=== PATIENT | male | born 1935 | race Caucasian/White ===

== ENCOUNTER 2019-03-08 16:14 | Emergency (ER) | payer MEDICARE ==
[2019-03-08 16:43] LABS: #Basophils 0.1 thou/uL (0.0-0.2); #Eosinphils 0.2 thou/uL (0.0-0.7); #Lymphocytes 1.7 thou/uL (1.20-3.40); #Monocytes 0.8 thou/uL (0.11-0.59); #Neutrophils 4.2 thou/uL (1.40-6.50); %Basophils 0.9 % (0.0-1.0); %Eosinophils 3.1 % (0.0-10.0); %Lymphocytes 24.6 % (21.0-51.0); %Monocytes 10.9 % (0.0-10.0); %Neutrophils 60.4 % (42.0-75.0); Hemoglobin 15.2 g/dL (14.0-18.0); Mean Corpuscular HGB CONC 32.8 g/dL (32.0-36.0); Mean Corpuscular Hemoglobin 31.2 pg (27.0-31.0); Mean Corpuscular Volume 95.2 fL (78.0-98.0); Mean Platelet Volume 8.2 fL (7.4-10.4); Platelet Count 232 thou/uL (130-400); RBC Distribution Width 11.4 % (11.5-14.5); Red Blood Cell (RBC) Count 4.88 mill/uL (4.70-6.10)
[2019-03-08] MEDS ORDERED: Nitroglycerin 0.4 MG TAB 1 EACH ONE (16:53)
[2019-03-08] MEDS ORDERED: Aspirin Chewable 81 MG TAB ONE (16:53)
[2019-03-08 17:00] LABS: ALT (SGPT) 12 U/L (8-55); AST (SGOT) 20 U/L (5-34); Albumin 4.6 g/dL (3.4-4.8); Alkaline Phosphatase 58 U/L (40-150); Anion Gap 11 mmol/L (10-20); BUN (Urea Nitrogen) 17 mg/dL (8.4-25.7); Bilirubin, Total 0.3 mg/dL (0.2-1.2); Calc. Creatinine Clearance 0 mL/min (70-130); Calcium 9.2 mg/dL (7.8-10.44); Carbon Dioxide 27 mmol/L (23-31); Chloride 104 mmol/L (98-107); Estimated GFR-MDRD 78; Globulin 3.2 g/dL (2.4-3.5); Glucose 94 mg/dL (83-110); Potassium 4.1 mmol/L (3.5-5.1); Protein, Total 7.8 g/dL (5.8-8.1); Sodium 138 mmol/L (136-145)
--- NOTE | 2019-03-08 17:08 | RAD ---
Exam: Chest one view HISTORY:Chest pain Comparison: 02/13/2014 FINDINGS: Cardiac silhouette:Upper normal Pulmonary vessels: Normal Costophrenic angles: Clear LUNGS: No masses or consolidation. Hyperinflation with chronic changes. Pneumothorax: None Osseous abnormalities: None IMPRESSION: No acute cardiopulmonary process.
[2019-03-08] MEDS ORDERED: Enoxaparin Sodium 80 MG/0.8 ML SYRINGE ONE (17:50)
== END 2019-03-08 18:37 | disposition short-term general hospital (02) ==
LOC: MADERS 16:14
DX: I24.9 Acute ischemic heart disease, unspecified (principal); I45.2 Bifascicular block; Z86.73 Personal history of transient ischemic attack (TIA), and cerebral infarction without residual deficits; Z79.82 Long term (current) use of aspirin; Z79.899 Other long term (current) drug therapy
CPT/HCPCS: 71045; 80053; 82553; 83880; 84484; 85025; 93005; 94760; 96372; J1650

== ENCOUNTER 2019-03-20 18:30 | Inpatient (IN) | payer MEDICARE ==
[2019-03-20] MEDS ORDERED: Mineral Oil ENEMA PR PRN (19:44)
[2019-03-20] MEDS ORDERED: traZODone HCl 50 MG TAB PO PRN (19:46)
[2019-03-20] MEDS: Atorvastatin Calcium 10 MG TAB PO SCH (20:31)
[2019-03-20] MEDS: Tamsulosin HCl 0.4 MG CAP PO SCH (20:32)
[2019-03-20] MEDS: Mirtazapine 15 MG TAB PO SCH (20:32)
[2019-03-21 05:01] LABS: #Eosinphils 0.3 thou/uL (0.0-0.7); #Lymphocytes 1.3 thou/uL (1.20-3.40); #Monocytes 0.8 thou/uL (0.11-0.59); #Neutrophils 5.8 thou/uL (1.40-6.50); %Basophils 0.4 % (0.0-1.0); %Eosinophils 3.9 % (0.0-10.0); %Monocytes 9.9 % (0.0-10.0); %Neutrophils 69.8 % (42.0-75.0); Hemoglobin 10.1 g/dL (14.0-18.0); Mean Corpuscular HGB CONC 34.5 g/dL (32.0-36.0); Mean Corpuscular Hemoglobin 32.5 pg (27.0-31.0); Mean Corpuscular Volume 94.1 fL (78.0-98.0); Mean Platelet Volume 7.6 fL (7.4-10.4); Platelet Count 213 thou/uL (130-400); RBC Distribution Width 13.7 % (11.5-14.5); White Blood Cell (WBC) Count 8.4 thou/uL (4.8-10.8)
[2019-03-21 05:25] LABS: ALT (SGPT) 49 U/L (8-55); AST (SGOT) 25 U/L (5-34); Albumin 3.1 g/dL (3.4-4.8); Alkaline Phosphatase 87 U/L (40-150); Anion Gap 13 mmol/L (10-20); BUN (Urea Nitrogen) 40 mg/dL (8.4-25.7); Bilirubin, Total 0.5 mg/dL (0.2-1.2); Calc. Creatinine Clearance 53 mL/min (70-130); Calcium 7.7 mg/dL (7.8-10.44); Carbon Dioxide 24 mmol/L (23-31); Chloride 96 mmol/L (98-107); Estimated GFR-MDRD 63; Globulin 2.1 g/dL (2.4-3.5); Glucose 90 mg/dL (83-110); Potassium 4.3 mmol/L (3.5-5.1); Protein, Total 5.2 g/dL (5.8-8.1); Sodium 129 mmol/L (136-145)
[2019-03-21] MEDS: Carvedilol 3.125 MG TAB PO SCH ×2 (08:02→16:50)
[2019-03-21] MEDS: Nystatin 500,000 UNITS/5 ML UDCUP SSP SCH ×4 (08:02→21:17)
[2019-03-21] MEDS: Aspirin 325 mg Enteric Coated Tablet PO SCH (08:04)
[2019-03-21] MEDS: Polyethylene Glycol 3350 17 GM Packet PO SCH (08:04)
[2019-03-21] MEDS ORDERED: Escitalopram Oxalate 10 mg Tablet PO SCH (09:00)
--- NOTE | 2019-03-21 11:16 | HP ---
Suhail Lopez was admitted to [facility] on evening of 03/20/2019. CHIEF COMPLAINT: Weakness, no appetite. HISTORY OF PRESENT ILLNESS: The patient is an 83-year-old white male, who has a history of BPH and a distant TIA with no recent episodes. He lives at home with his and is independent with all of his ADLs and instrumental ADLs. The patient originally presented to my office on 03/08/2019 with episodes of intermittent epigastric and substernal pains that were becoming more frequent. He was taken to the emergency room and then transferred to [facility] and admitted on 03/08/2019. His initial cardiac enzymes were elevated and gradually peaked at 3.9 and CK-MB peaked at 16.9. He was admitted with a diagnosis of crescendo angina and myocardial infarction. He was seen in consultation by gambling supervisor and underwent a heart catheterization late on the night of 03/08/2019 that showed a high-grade LAD lesion at the first septal lambskin trimmer. He was electively scheduled for coronary artery bypass, but on the morning of his planned surgery, that is 03/10/2019, again he had sustained chest pain that improved with fluids and pharmacologic management. He was emergently taken back to surgery, but on the hotel or motel cleaning supervisor of 03/10, by cardiovascular surgeon, Dr. Henrry Gastelum and underwent coronary artery bypass x1 with the left internal mammary artery to the mid LAD. His postop course was complicated by some hypotension requiring vasopressors that eventually he was able to be weaned from. He also developed postop atrial fib and converted back to sinus rhythm the same day and remained in the sinus rhythm. He also had an episode of atrial flutter that resolved. He has been managed on aspirin and Coreg. He also had hyponatremia. His Lasix was stopped and he was placed on fluid restriction. His last chest tube was removed on 03/20/2019. His condition was one of gradual improvements, but he was left very weak, anorexic and depressed. He was started on Marinol and Lexapro and then it has opted to move him to [facility] on the evening of 03/20/2019 for physical therapy and continued management of the weakness, anorexia, and depression. Marinol was not available at the formulary at [place] and this was stopped. He had complained he had not been sleeping, and he was started on mirtazapine 15 mg at bedtime. The Lexapro will be stopped. The patient was seen early on the morning of 03/21/2019. He said he slept good last night, first night in a long time. He said he has just been weak. He has not had much of an appetite and just has been down in the dumps. He said he does feel a little better this morning. He said he is overall doing better, has been able to get up, sit up in a chair. He has been walking some in the hallways with assistance, but very weak. PAST MEDICAL HISTORY: Hospitalized at [facility] from 03/08 until 03/20/2019 for crescendo angina with infarction, heart cath showed high-grade stenosis of the proximal LAD at the first septal lambskin trimmer and 50% blockage in the RCA. He underwent emergent coronary artery surgery early in the morning of 03/10/2019, underwent a coronary artery bypass x1 with left internal mammary artery to the mid LAD. See present illness for further details. The patient has history of BPH and he has undergone TURP x2 and is managed with medication, doing well. Has severe arthritis of the left hip for which he has undergone a left hip replacement and doing well. He has had an appendectomy years ago. He had a TIA. He has not been left with any residual deficits and has had no recurrence. He has hyperlipidemia. PRESENT MEDICATIONS: 1. Aspirin 325 mg daily. 2. Atorvastatin 40 mg at bedtime. 3. Carvedilol 1.56 mg b.i.d. 4. Escitalopram 10 mg daily, which will be stopped. 5. Mineral oil by [employer] daily p.r.n. 6. Mirtazapine 15 mg at bedtime started on the evening of 03/20. 7. Pantoprazole 40 mg daily. 8. MiraLAX 17 g, 8 ounces of water, started on 03/21/2019. 9. Tamsulosin 0.4 mg at bedtime. ALLERGIES: PENICILLIN, SULFA DRUGS. REVIEW OF SYSTEMS: CONSTITUTIONAL: The patient said he has had no fever. The patient said he thinks he has lost some weight. The patient said he is just weak. He is able to get up and walk some with a walker and assistance. HEAD AND NECK: No complaints. PULMONARY: He has not been short of breath. CARDIOVASCULAR: He has had no chest pain. He is sore in the sternal area from the sternal splitting incision. GI: He has no appetite. He has had no nausea, no vomiting. Bowels are not moving well. : No complaint. MUSCULOSKELETAL: No complaint. NEUROPSYCHIATRIC: The patient complains of generalized weakness. No focal weakness. He is complaining of being depressed. HABITS: The patient does not smoke. He says he drinks occasionally. The patient is . He lives with his . Independent of all his ADLs and instrumental ADLs prior to this hospitalization. CODE STATUS: Full code. PHYSICAL EXAMINATION: GENERAL: Shows a pleasant 83-year-old white male, who is lying in bed. He is awake, alert, recognizes me and knows that he is in [facility]. He appears very weak, but is talkative and appears in no acute distress. He has a depressed affect. VITAL SIGNS: Show a temperature 97.5, pulse 87, respirations 18, O2 saturation 93%, blood pressure 108/66. His weight is 165. HEAD: Normocephalic. EYES: Pupils are equal, round, and reactive. He has had bilateral artificial lens implant for cataracts. EARS: TMs clear. NOSE: Normal. MOUTH AND THROAT: Mouth and throat are little dry, and there is a little whitish brown discoloration on the tongue and some on the mucous membranes, on the buccal mucosa. NECK: His neck carotids are equal and strong. No bruits. Thyroid not enlarged. LUNGS: Clear. HEART: Regular rate. No murmurs. CHEST: The patient has a sternal incision that is healing well. He has a chest tube site in the left lower anterior chest that was just removed and is covered with a Vaseline gauze and dressing. The skin near this area is irritated and a little raw from the taping that had been done. This last night was replaced just with the Vaseline gauze overlying 4x4 and ABD and paper tape. This morning, he has moderate amount of a serous drainage in the dressing. ABDOMEN: Scaphoid. There is no organomegaly nor areas of tenderness. EXTREMITIES: No edema. NEUROLOGIC: The patient is alert and oriented x3. He has a depressed affect. Has no focal weakness, but generalized weakness. He is able to get up and ambulate with assistance with a rolling walker. IMPRESSION: 1. Generalized weakness and deconditioning. a. Following recent myocardial infarction and coronary artery bypass on 03/10/2019. 2. Anorexia. 3. Depression. 4. Oral candidiasis. 5. Hospitalized at [facility] from 03/08 until 03/20/2019 for crescendo angina extending into myocardial infarction requiring coronary artery bypass on 03/10. Postop period complicated by some hypotension and short episode of atrial fibrillation and flutter that converted to a sinus rhythm. 6. Coronary artery disease. a. Hospitalized from 03/08 until 03/20/2019 for crescendo angina that extended into myocardial infarction. b. Heart cath on late night of 03/15/2019, showed high-grade stenosis of the proximal LAD at the site of the first lambskin trimmer takeoff and 50% stenosis of the right coronary artery. c. Status post emergent coronary artery bypass surgery with a graft x1 with a left internal mammary artery to the mid LAD on 03/10/[address] Gastelum. 7. Benign prostatic hypertrophy. a. Status post TURP x2. b. On tamsulosin. c. Asymptomatic. 8. Distant history of transient ischemic attack. a. No residual effect and no recurrence. PLAN: The patient has been admitted to [facility]. His Lexapro will be stopped and his Marinol will be stopped. I started him last evening on mirtazapine for the insomnia, the anorexia and depression, and he slept very well. I started him on Mycostatin oral suspension to use 4 times a day for 10 days for the oral candidiasis. The chest tube insertion site on the left lower anterior chest will be dressed daily. I will keep a Vaseline gauze over the site and then cover with 4x4s and ABD and use paper tape. The patient is placed on SCDs for DVT prophylaxis. The PT and OT will work with him. Code status, full code. Job ID: [id number]
[2019-03-21] MEDS: Atorvastatin Calcium 10 MG TAB PO SCH (21:17)
[2019-03-21] MEDS: Mirtazapine 15 MG TAB PO SCH (21:17)
[2019-03-21] MEDS: Tamsulosin HCl 0.4 MG CAP PO SCH (21:17)
[2019-03-22 05:14] LABS: #Basophils 0.1 thou/uL (0.0-0.2); #Eosinphils 0.3 thou/uL (0.0-0.7); #Lymphocytes 1.4 thou/uL (1.20-3.40); #Monocytes 0.9 thou/uL (0.11-0.59); #Neutrophils 6.3 thou/uL (1.40-6.50); %Basophils 0.9 % (0.0-1.0); %Eosinophils 3.7 % (0.0-10.0); %Lymphocytes 15.5 % (21.0-51.0); %Monocytes 9.8 % (0.0-10.0); %Neutrophils 70.2 % (42.0-75.0); Hemoglobin 10.2 g/dL (14.0-18.0); Mean Corpuscular HGB CONC 34.1 g/dL (32.0-36.0); Mean Corpuscular Hemoglobin 32.2 pg (27.0-31.0); Mean Corpuscular Volume 94.4 fL (78.0-98.0); Mean Platelet Volume 8.1 fL (7.4-10.4); Platelet Count 248 thou/uL (130-400); RBC Distribution Width 14.1 % (11.5-14.5); Red Blood Cell (RBC) Count 3.17 mill/uL (4.70-6.10)
[2019-03-22 05:32] LABS: Anion Gap 14 mmol/L (10-20); BUN (Urea Nitrogen) 33 mg/dL (8.4-25.7); Calc. Creatinine Clearance 59 mL/min (70-130); Calcium 7.7 mg/dL (7.8-10.44); Carbon Dioxide 23 mmol/L (23-31); Chloride 97 mmol/L (98-107); Estimated GFR-MDRD 71; Glucose 87 mg/dL (83-110); Potassium 4.1 mmol/L (3.5-5.1); Sodium 130 mmol/L (136-145)
[2019-03-22] MEDS: Carvedilol 3.125 MG TAB PO SCH ×3 (08:46→18:13)
[2019-03-22] MEDS: Nystatin 500,000 UNITS/5 ML UDCUP SSP SCH ×4 (08:46→21:33)
[2019-03-22] MEDS: Aspirin 325 mg Enteric Coated Tablet PO SCH (08:46)
[2019-03-22] MEDS: Polyethylene Glycol 3350 17 GM Packet PO SCH (08:47)
--- NOTE | 2019-03-22 10:19 | PRG ---
DATE OF SERVICE: 03/22/2019 SUBJECTIVE: The patient has been up and walked. Physical Therapy is now on the NuStep. He said he did sleep better. His mouth feels better, but he still just does not have much of an appetite. OBJECTIVE: GENERAL: The patient is sitting on the NuStep. He is more talkative. He looks better this morning, and he appears in no distress. VITAL SIGNS: His temperature is 97.9, pulse 88, respirations 16, O2 saturation 97% on room air, and blood pressure 117/62. LUNGS: Clear. HEART: Regular rate. Sternal incision is healing. There is no drainage or redness. He still has moderate amount of serous drainage from where the chest tube was removed from the left lower chest. MOUTH: Mucous membranes are moist. The tongue looks better. Still has some yellow whitish debris, but overall looks much improved. LABORATORY DATA: His lab shows an H and H of 10.0 and 29.9, white blood cell count 9000 with 70% segs and 15% lymphocytes and platelet count of 248,000. Sodium is up to 130, potassium 4.1, BUN down to 31, creatinine 1, GFR is 71, and glucose 87. ASSESSMENT: 1. Generalized weakness and deconditioning. a. Following recent myocardial infarction and coronary artery bypass on . b. Improved as of 03/22/2019. 2. Anorexia. a. Persists as of 03/22/2019. 3. Depression. a. A little improved as of 03/22/2019. 4. Oral candidiasis. a. Improved as of 03/22/2019. 5. Hospitalized at [facility] from 03/08 until 03/20/2019 for crescendo angina extending into myocardial infarction requiring coronary artery bypass on 03/10. Postop period complicated by some hypotension and short episode of atrial fibrillation and flutter that converted to a sinus rhythm. 6. Coronary artery disease. a. Hospitalized from 03/08 until 03/20/2019 for crescendo angina that extended into myocardial infarction. b. Heart cath on late night of 03/15/2019, showed high-grade stenosis of the proximal LAD at the site of the first concrete grinder operator takeoff and 50% stenosis of the right coronary artery. c. Status post emergent coronary artery bypass surgery with a graft x1 with a left internal mammary artery to the mid LAD on 03/10/[address] Gastelum. d. Improving. Still has some moderate serous drainage from where the chest tube was removed from the left chest as of 03/22/2019. 7. Benign prostatic hypertrophy. a. Status post TURP x2. b. On tamsulosin. c. Asymptomatic. 8. Distant history of transient ischemic attack. a. No residual effect and no recurrence. PLAN: The patient looks a little better today. I think as he continues to improve physically and his oral candidiasis improved, the depression improved, that his appetite will also begin improving, if not we will increase the mirtazapine, continue positive reinforcement. Job ID: [id number] [facility]
[2019-03-22] MEDS: Atorvastatin Calcium 10 MG TAB PO SCH (21:33)
[2019-03-22] MEDS: Tamsulosin HCl 0.4 MG CAP PO SCH (21:33)
[2019-03-22] MEDS: Mirtazapine 15 MG TAB PO SCH (21:33)
[2019-03-23] MEDS: Nystatin 500,000 UNITS/5 ML UDCUP SSP SCH ×4 (07:57→20:03)
[2019-03-23] MEDS: Carvedilol 3.125 MG TAB PO SCH ×2 (07:58→16:52)
[2019-03-23] MEDS: Aspirin 325 mg Enteric Coated Tablet PO SCH (07:58)
[2019-03-23] MEDS: Polyethylene Glycol 3350 17 GM Packet PO SCH (07:58)
--- NOTE | 2019-03-23 12:22 | PRG ---
DATE OF SERVICE: 03/23/2019 SUBJECTIVE: The patient said he slept good last night. The patient is eating a little better. His has been visiting with him and the dietitian is working with him to find foods that he likes to eat at home. OBJECTIVE: GENERAL: The patient is sitting up on the side of the bed. He is alert. He looks better. He appears in no acute distress. VITAL SIGNS: His temperature is 97.1, pulse 88, respirations 16, O2 saturation 95% on room air, blood pressure 105/62. LUNGS: Clear. HEART: Regular rate. The sternal incision is healing. Dressing over the left lower anterolateral chest is dry. EXTREMITIES: No edema. HEENT: Oral mucosa is moist. Tongue looks better. The white-yellowish discoloration is resolving. ASSESSMENT: 1. Generalized weakness and deconditioning. a. Following recent myocardial infarction and coronary artery bypass on . b. Improved as of 03/23/2019. 2. Anorexia. a. Little improved as of 03/23/2019. 3. Depression. a. A little improved as of 03/23/2019. 4. Oral candidiasis. a. Improved as of 03/23/2019. 5. Hospitalized at [facility] from 03/08 until 03/20/2019 for crescendo angina extending into myocardial infarction requiring coronary artery bypass on 03/10. Postop period complicated by some hypotension and short episode of atrial fibrillation and flutter that converted to a sinus rhythm. 6. Coronary artery disease. a. Hospitalized from 03/08 until 03/20/2019 for crescendo angina that extended into myocardial infarction. b. Heart cath on late night of 03/15/2019, showed high-grade stenosis of the proximal LAD at the site of the first cocoa roaster takeoff and 50% stenosis of the right coronary artery. c. Status post emergent coronary artery bypass surgery with a graft x1 with a left internal mammary artery to the mid LAD on 03/10/[address] Gastelum. d. Improving. Still has some moderate serous drainage from where the chest tube was removed from the left chest as of 03/22/2019. 7. Benign prostatic hypertrophy. a. Status post TURP x2. b. On tamsulosin. c. Asymptomatic. 8. Distant history of transient ischemic attack. a. No residual effect and no recurrence. PLAN: The patient is doing a little better. We will continue PT/OT. Dietitian has met with him and given him medicines that he eats at home. He is doing a little better with his eating. His is going to share her meals with him, which she is happy about. Job ID: [id number] [facility]
[2019-03-23] MEDS: Mag-Al Plus 1200 MG/1200 MG/120 MG/30 ML UDCUP PO PRN (20:00)
[2019-03-23] MEDS: Tamsulosin HCl 0.4 MG CAP PO SCH (20:00)
[2019-03-23] MEDS: Mirtazapine 15 MG TAB PO SCH (20:01)
[2019-03-23] MEDS: Atorvastatin Calcium 10 MG TAB PO SCH (20:01)
[2019-03-23] MEDS: Acetaminophen 325 MG TAB PO PRN (20:01)
[2019-03-24] MEDS: Polyethylene Glycol 3350 17 GM Packet PO SCH (08:23)
[2019-03-24] MEDS: Aspirin 325 mg Enteric Coated Tablet PO SCH (08:24)
[2019-03-24] MEDS: Carvedilol 3.125 MG TAB PO SCH ×2 (08:24→17:31)
[2019-03-24] MEDS: Nystatin 500,000 UNITS/5 ML UDCUP SSP SCH ×4 (08:24→20:15)
--- NOTE | 2019-03-24 10:07 | PRG ---
DATE OF SERVICE: 03/24/2019 SUBJECTIVE: The patient is feeling better today. He is eating a little better. He gets a little indigestion with eating, but took some Maalox for the indigestion and this seemed to work very well. He is doing good with physical therapy. He has had no shortness of breath or chest pain. His mouth is feeling better. OBJECTIVE: GENERAL: The patient is in the Physical therapy Department on [address], working his arms and legs. He is alert, talkative, appears comfortable, in no distress. VITAL SIGNS: Temp 97.5, pulse 100, respirations 18, O2 saturation 95% on room air, blood pressure 93/58. LUNGS: Clear. HEART: Regular rate. External incision healing well. The dressing over the left chest tube site is dry. EXTREMITIES: No edema. ASSESSMENT: 1. Generalized weakness and deconditioning. a. Following recent myocardial infarction and coronary artery bypass on . b. Improved as of 03/24/2019. 2. Anorexia. a. Improved as of 03/24/2019. 3. Depression. a. Improved as of 03/24/2019. 4. Oral candidiasis. a. Resolving as of 03/24/2019. 5. Hospitalized at [facility] from 03/08 until 03/20/2019 for crescendo angina extending into myocardial infarction requiring coronary artery bypass on 03/10. Postop period complicated by some hypotension and short episode of atrial fibrillation and flutter that converted to a sinus rhythm. 6. Coronary artery disease. a. Hospitalized from 03/08 until 03/20/2019 for crescendo angina that extended into myocardial infarction. b. Heart cath on late night of 03/15/2019, showed high-grade stenosis of the proximal LAD at the site of the first service or work dispatcher takeoff and 50% stenosis of the right coronary artery. c. Status post emergent coronary artery bypass surgery with a graft x1 with a left internal mammary artery to the mid LAD on 03/10/[address] Gastelum. d. Improving. Still has some moderate serous drainage from where the chest tube was removed from the left chest as of 03/22/2019. 7. Benign prostatic hypertrophy. a. Status post TURP x2. b. On tamsulosin. c. Asymptomatic. 8. Distant history of transient ischemic attack. a. No residual effect and no recurrence. PLAN: Continue present care. Continue PT. Job ID: [id number] [facility]
[2019-03-24] MEDS: Mag-Al Plus 1200 MG/1200 MG/120 MG/30 ML UDCUP PO PRN ×2 (11:51→17:34)
[2019-03-24] MEDS: Acetaminophen 325 MG TAB PO PRN ×2 (19:22→23:17)
[2019-03-24] MEDS: Tamsulosin HCl 0.4 MG CAP PO SCH (20:15)
[2019-03-24] MEDS: Mirtazapine 15 MG TAB PO SCH (20:15)
[2019-03-24] MEDS: Atorvastatin Calcium 10 MG TAB PO SCH (20:16)
[2019-03-24] MEDS: Melatonin 3 MG TAB PO PRN (20:39)
[2019-03-25] MEDS: Aspirin 325 mg Enteric Coated Tablet PO SCH (09:01)
[2019-03-25] MEDS: Carvedilol 3.125 MG TAB PO SCH ×2 (09:01→17:25)
[2019-03-25] MEDS: Polyethylene Glycol 3350 17 GM Packet PO SCH (09:01)
[2019-03-25] MEDS: Nystatin 500,000 UNITS/5 ML UDCUP SSP SCH ×4 (09:02→20:22)
[2019-03-25] MEDS: Atorvastatin Calcium 10 MG TAB PO SCH (20:21)
[2019-03-25] MEDS: Mirtazapine 15 MG TAB PO SCH (20:21)
[2019-03-25] MEDS: Acetaminophen 325 MG TAB PO PRN (20:22)
[2019-03-25] MEDS: Tamsulosin HCl 0.4 MG CAP PO SCH (20:22)
[2019-03-25] MEDS: Melatonin 3 MG TAB PO PRN (20:22)
[2019-03-26] MEDS: Acetaminophen 325 MG TAB PO PRN ×2 (03:08→21:05)
[2019-03-26 06:32] VITALS: BMI 21.9
[2019-03-26] MEDS: Polyethylene Glycol 3350 17 GM Packet PO SCH (08:36)
[2019-03-26] MEDS: Nystatin 500,000 UNITS/5 ML UDCUP SSP SCH ×4 (08:36→21:04)
[2019-03-26] MEDS: Carvedilol 3.125 MG TAB PO SCH ×2 (08:37→17:21)
[2019-03-26] MEDS: Aspirin 325 mg Enteric Coated Tablet PO SCH (08:37)
[2019-03-26] MEDS: Mag-Al Plus 1200 MG/1200 MG/120 MG/30 ML UDCUP PO PRN (15:24)
[2019-03-26] MEDS ORDERED: Mag-Al Plus 1200 MG/1200 MG/120 MG/30 ML UDCUP PO PRN (15:29)
[2019-03-26] MEDS: Atorvastatin Calcium 10 MG TAB PO SCH (21:02)
[2019-03-26] MEDS: Mirtazapine 15 MG TAB PO SCH (21:03)
[2019-03-26] MEDS: Tamsulosin HCl 0.4 MG CAP PO SCH (21:03)
[2019-03-26] MEDS: Melatonin 3 MG TAB PO PRN (21:03)
[2019-03-27] MEDS: Carvedilol 3.125 MG TAB PO SCH ×2 (08:31→17:29)
[2019-03-27] MEDS: Polyethylene Glycol 3350 17 GM Packet PO SCH (08:31)
[2019-03-27] MEDS: Aspirin 325 mg Enteric Coated Tablet PO SCH (08:32)
--- NOTE | 2019-03-27 10:37 | PRG ---
DATE OF SERVICE: 03/27/2019 SUBJECTIVE: The patient says he is doing a lot better. He is walking further. He is transferring independent. His appetite is much better. His mouth, he thinks is well and he has refused anymore the Mycostatin. He thinks he is ready to go home. OBJECTIVE: GENERAL: The patient looks much better. His spirits are good. He appears in no distress. VITAL SIGNS: His temperature is 98.2, pulse 92, respirations 18, O2 saturation 96%, and blood pressure 108/70. HEENT: Mouth, moist. Tongue is pink. There is no whitish debris or yellowish debris. The buccal mucosa is pink with no lesions. LUNGS: Clear. HEART: Regular rate. EXTREMITIES: No edema. The sternal incision is healing. ASSESSMENT: 1. Generalized weakness and deconditioning. a. Following recent myocardial infarction and coronary artery bypass on . b. Continued to improve. Walking further and transferring independent as of 03/27/2019. 2. Anorexia. a. Resolving as of 03/27/2019. 3. Depression. a. Improved as of 03/27/2019. 4. Oral candidiasis. a. Resolved as of 03/27/2019. 5. Hospitalized at [facility] from 03/08 until 03/20/2019 for crescendo angina extending into myocardial infarction requiring coronary artery bypass on 03/10. Postop period complicated by some hypotension and short episode of atrial fibrillation and flutter that converted to a sinus rhythm. 6. Coronary artery disease. a. Hospitalized from 03/08 until 03/20/2019 for crescendo angina that extended into myocardial infarction. b. Heart cath on late night of 03/15/2019, showed high-grade stenosis of the proximal LAD at the site of the first vocal music teacher takeoff and 50% stenosis of the right coronary artery. c. Status post emergent coronary artery bypass surgery with a graft x1 with a left internal mammary artery to the mid LAD on 03/10/[address] Gastelum. d. Improving. Still has some moderate serous drainage from where the chest tube was removed from the left chest as of 03/22/2019. 7. Benign prostatic hypertrophy. a. Status post TURP x2. b. On tamsulosin. c. Asymptomatic. 8. Distant history of transient ischemic attack. a. No residual effect and no recurrence. PLAN: The patient is making excellent progress. We will continue present management. We will stop the Mycostatin oral suspension. Continue PT. We will plan for discharge home on 03/29/2019. This will give his some preparatory time and he will certainly benefit by the added therapy. We will recheck CBC and comprehensive metabolic panel in the morning. Job ID: [id number] [facility]TDD
[2019-03-27 14:55] LABS: ALT (SGPT) 37 U/L (8-55); AST (SGOT) 35 U/L (5-34); Albumin 3.1 g/dL (3.4-4.8); Alkaline Phosphatase 90 U/L (40-150); Anion Gap 13 mmol/L (10-20); BUN (Urea Nitrogen) 19 mg/dL (8.4-25.7); Bilirubin, Total 0.4 mg/dL (0.2-1.2); Calc. Creatinine Clearance 0 mL/min (70-130); Calcium 7.5 mg/dL (7.8-10.44); Carbon Dioxide 22 mmol/L (23-31); Chloride 105 mmol/L (98-107); Estimated GFR-MDRD 82; Glucose 108 mg/dL (83-110); Potassium 3.7 mmol/L (3.5-5.1); Protein, Total 5.1 g/dL (5.8-8.1); Sodium 136 mmol/L (136-145)
[2019-03-27] MEDS: Atorvastatin Calcium 10 MG TAB PO SCH (20:10)
[2019-03-27] MEDS: Tamsulosin HCl 0.4 MG CAP PO SCH (20:11)
[2019-03-27] MEDS: Mirtazapine 15 MG TAB PO SCH (20:11)
[2019-03-28 05:22] LABS: Anion Gap 15 mmol/L (10-20); BUN (Urea Nitrogen) 17 mg/dL (8.4-25.7); Calc. Creatinine Clearance 68 mL/min (70-130); Calcium 7.7 mg/dL (7.8-10.44); Carbon Dioxide 22 mmol/L (23-31); Chloride 104 mmol/L (98-107); Estimated GFR-MDRD 86; Glucose 93 mg/dL (83-110); Potassium 3.6 mmol/L (3.5-5.1); Sodium 137 mmol/L (136-145)
[2019-03-28] MEDS: Polyethylene Glycol 3350 17 GM Packet PO SCH (07:09)
[2019-03-28] MEDS: Carvedilol 3.125 MG TAB PO SCH ×2 (08:04→17:08)
[2019-03-28] MEDS: Aspirin 325 mg Enteric Coated Tablet PO SCH (08:04)
[2019-03-28] MEDS: Clotrimazole 1% Cream 15 GM TUBE TOP SCH ×2 (08:53→20:10)
--- NOTE | 2019-03-28 09:48 | PRG ---
DATE OF SERVICE: 03/28/2019 SUBJECTIVE: The patient said he is feeling well. He is doing well with his PT. This morning walking up to 400 feet. Transferring independent. Appetite, he said is better, but not back to normal. He still wants to try to go home tomorrow. His is making preparations. OBJECTIVE: GENERAL: The patient is in the hallways, walking with his walker. He is alert, appears comfortable, in no distress. VITAL SIGNS: Shows a temp 98, pulse 94, respirations 18, O2 saturation 97% on room air, and blood pressure 107/63. LUNGS: Clear. HEART: Regular rate. Sternal incision healing. There was just Band-Aids now over the chest tube sites over the left lower anterior lateral chest. EXTREMITIES: No edema. ASSESSMENT: 1. Generalized weakness and deconditioning. a. Following recent myocardial infarction and coronary artery bypass on . b. Continues to improve. Walking up to 400 feet with a walker and transferring independent as of 03/28/2019. 2. Anorexia. a. Resolving as of 03/27/2019. 3. Depression. a. Improved as of 03/28/2019. 4. Oral candidiasis. a. Resolved as of 03/27/2019. 5. Hospitalized at [facility] from 03/08 until 03/20/2019 for crescendo angina extending into myocardial infarction requiring coronary artery bypass on 03/10. Postop period complicated by some hypotension and short episode of atrial fibrillation and flutter that converted to a sinus rhythm. 6. Coronary artery disease. a. Hospitalized from 03/08 until 03/20/2019 for crescendo angina that extended into myocardial infarction. b. Heart cath on late night of 03/15/2019, showed high-grade stenosis of the proximal LAD at the site of the first cash applications analyst takeoff and 50% stenosis of the right coronary artery. c. Status post emergent coronary artery bypass surgery with a graft x1 with a left internal mammary artery to the mid LAD on 03/10/[address] Gastelum. d. Improving. Chest tube sites are healing and just to have a Band-Aid over the insertion sites as of 03/28/2019. 7. Benign prostatic hypertrophy. a. Status post TURP x2. b. On tamsulosin. c. Asymptomatic. 8. Distant history of transient ischemic attack. a. No residual effect and no recurrence. PLAN: Continue PT/OT. Nurses report the patient has a small red area over the glans penis. We will give him clotrimazole cream for this, even at this yeast. Plan on discharge tomorrow. Job ID: [id number] [facility]TDD
[2019-03-28] MEDS: Atorvastatin Calcium 10 MG TAB PO SCH (20:11)
[2019-03-28] MEDS: Tamsulosin HCl 0.4 MG CAP PO SCH (20:11)
[2019-03-28] MEDS: Mirtazapine 15 MG TAB PO SCH (20:14)
[2019-03-29] MEDS: Melatonin 3 MG TAB PO PRN (02:31)
[2019-03-29 06:40] VITALS: BP 101/65; TEMP 98.1
[2019-03-29] MEDS: Aspirin 325 mg Enteric Coated Tablet PO SCH (08:04)
[2019-03-29] MEDS: Carvedilol 3.125 MG TAB PO SCH (08:04)
[2019-03-29] MEDS: Clotrimazole 1% Cream 15 GM TUBE TOP SCH (08:04)
[2019-03-29] MEDS: Polyethylene Glycol 3350 17 GM Packet PO SCH (08:05)
--- NOTE | 2019-03-29 08:59 | DIS ---
DATE OF ADMISSION: 03/20/2019 DATE OF DISCHARGE: 03/29/2019 DISCHARGE DIAGNOSES: 1. Generalized weakness and deconditioning. a. Following recent myocardial infarction and coronary artery bypass on . b. Continues to improve. Walking up to 400 feet with a walker and transferring independent as of 03/29/2019. 2. Anorexia. a. Resolved as of 03/29/2019. 3. Depression. a. Improved as of 03/29/2019. 4. Oral candidiasis. a. Resolved as of 03/27/2019. 5. Hospitalized at [facility] from 03/08 until 03/20/2019 for crescendo angina extending into myocardial infarction requiring coronary artery bypass on 03/10. Postop period complicated by some hypotension and short episode of atrial fibrillation and flutter that converted to a sinus rhythm. 6. Coronary artery disease. a. Hospitalized from 03/08 until 03/20/2019 for crescendo angina that extended into myocardial infarction. b. Heart cath on late night of 03/15/2019, showed high-grade stenosis of the proximal LAD at the site of the first tool crib supervisor takeoff and 50% stenosis of the right coronary artery. c. Status post emergent coronary artery bypass surgery with a graft x1 with a left internal mammary artery to the mid LAD on 03/10/[address] Gastelum. d. Improving. Chest tube sites are healing and just to have a Band-Aid over the insertion sites as of 03/28/2019. 7. Benign prostatic hypertrophy. a. Status post TURP x2. b. On tamsulosin. c. Asymptomatic. 8. Distant history of transient ischemic attack. a. No residual effect and no recurrence. REASON FOR ADMISSION: The patient is an 83-year-old white male who has a history of BPH, who lives at home with his and is independent of all his instrumental ADLs and ADLs. The patient was hospitalized at [facility] on 03/08/2019 for crescendo angina and had abnormal enzymes with evidence of myocardial infarction. He underwent a heart catheterization and it showed a high-grade stenosis of the proximal LAD at the site of the first tool crib supervisor takeoff and 50% stenosis of the right coronary artery. He underwent coronary artery bypass emergently because he developed repeat chest pain and he had a graft x 1 with a left internal mammary artery to the mid LAD on 03/10/[address] Gastelum. Postop course was complicated by a short episode of atrial fibrillation and also by some hypotension. Gradually he improved and was able to be removed from any vasopressors. His chest tube was removed on 03/19/2019. He was doing very well with the exception he was extremely weak, anorexic, and depressed. He was sent to [facility] on 03/20/2019 for these reasons. On initial examination, he was very weak, required assistance with getting up and down and walking. He was found to have an oral candidiasis, which was contributing to his anorexia. His lungs were clear. The chest tube site had a moderate amount of serous drainage over the left lower anterolateral chest. This was kept clean and covered with Vaseline gauze and gauze dressing, and an ABD. This gradually improved through his hospitalization. He had a very depressed affect. The patient was placed on Diflucan and on Mycostatin oral suspension for the oral candidiasis, and then he was placed on mirtazapine and the Lexapro was stopped. Mirtazapine was thought would work better and that it may help stimulate his appetite, help with his sleep that he was having a lot of trouble with and help as an antidepressant. The anorexia was felt to be secondary to the events that he has been through plus the depression and the oral candidiasis. The depression gradually improved. The sleep did very well on the mirtazapine. Melatonin was added to this and he seemed to be doing fine with sleep. The oral candidiasis gradually resolved. His appetite came back. His blood pressure remained low. He was on a very low dose of Coreg 3.125 half a tablet twice today, but this was held, if blood pressure less than 100. Most the time, he would only receive this just one time a day. He had no symptoms from this lower blood pressure. The patient made excellent progress with his physical therapy. By the time of his discharge, he was walking up to 400 feet with his rolling walker and he was transferring independently. His sternal incision was healing well. The chest tube insertion sites were healing well with just minimal dressing, and were able to be dressed with just a Band-Aid. By 03/29, the patient was doing well. His lungs were clear. His affect was very happy and his strength was markedly improved. His oral candidiasis had resolved. The patient was discharged on 03/29. Home Health will picker box operator on his care and continue in-home PT and OT. DISPOSITION: DIET: Regular diet. No added salt. Encourage liquids. ACTIVITIES: Up as tolerated. Encourage him to gradually increase activities in the house. Home Health will see him and arrange for in-home PT and OT. MEDICATIONS: 1. Acetaminophen 325 mg two every 4 hours as needed. 2. Maalox 30 mL every 4 hours as needed. 3. Aspirin 325 mg daily. 4. Atorvastatin 40 mg daily. 5. Carvedilol 3.125 mg half a tablet daily, hold if blood pressure less than 100 or pulse less than 55. 6. Melatonin 3 mg at bedtime. 7. Mirtazapine 15 mg at bedtime. 8. Pantoprazole 40 mg daily. 9. MiraLAX 17 g 8 ounces of water daily. 10. Tamsulosin 0.4 mg at bedtime. FOLLOWUP: [facility] will see the patient and arrange for in-home PT. We will see patient in my office in 2 weeks with CBC and basic metabolic panel. It was noted by his briquette machine operator that he had a right carotid bruit and she had recommended he have a duplex carotid scan as an outpatient setting. When he is seen in followup, arrangements for this will be made. The patient should follow up with his Cardiovascular surgeon, Dr. Gastelum. CODE STATUS: DNR. Job ID: [id number] MTDD
== END 2019-03-29 11:40 | disposition home health service (06) | DRG 949 ==
LOC: MADMS 18:30
PROVIDERS: ADMIT Family Medicine; ATTEND Family Medicine
DX: Z48.812 Encounter for surgical aftercare following surgery on the circulatory system (principal); B37.0 Candidal stomatitis; R53.1 Weakness; R53.81 Other malaise; F32.9 Major depressive disorder, single episode, unspecified; Z66 Do not resuscitate; R63.0 Anorexia; I25.10 Atherosclerotic heart disease of native coronary artery without angina pectoris; N40.0 Benign prostatic hyperplasia without lower urinary tract symptoms; G47.00 Insomnia, unspecified; Z96.642 Presence of left artificial hip joint; E78.5 Hyperlipidemia, unspecified; Z86.73 Personal history of transient ischemic attack (TIA), and cerebral infarction without residual deficits; Z90.49 Acquired absence of other specified parts of digestive tract; Z79.82 Long term (current) use of aspirin; Z88.0 Allergy status to penicillin; Z88.2 Allergy status to sulfonamides
CPT/HCPCS: 36415; 80048; 80053; 85025

== ENCOUNTER 2019-04-01 07:35 | Emergency (ER) | payer MEDICARE ==
[2019-04-01 08:20] LABS: #Basophils 0.1 thou/uL (0.0-0.2); #Eosinphils 0.3 thou/uL (0.0-0.7); #Lymphocytes 1.2 thou/uL (1.20-3.40); #Monocytes 0.5 thou/uL (0.11-0.59); #Neutrophils 3.2 thou/uL (1.40-6.50); %Basophils 1.8 % (0.0-1.0); %Eosinophils 5.8 % (0.0-10.0); %Lymphocytes 22.1 % (21.0-51.0); %Monocytes 9.6 % (0.0-10.0); %Neutrophils 60.7 % (42.0-75.0); Hemoglobin 10.3 g/dL (14.0-18.0); Mean Corpuscular Hemoglobin 31.8 pg (27.0-31.0); Mean Corpuscular Volume 93.5 fL (78.0-98.0); Mean Platelet Volume 8.3 fL (7.4-10.4); Platelet Count 188 thou/uL (130-400); RBC Distribution Width 13.9 % (11.5-14.5); Red Blood Cell (RBC) Count 3.25 mill/uL (4.70-6.10); White Blood Cell (WBC) Count 5.2 thou/uL (4.8-10.8)
[2019-04-01 08:35] LABS: ALT (SGPT) 31 U/L (8-55); AST (SGOT) 21 U/L (5-34); Albumin 3.5 g/dL (3.4-4.8); Alkaline Phosphatase 113 U/L (40-150); Anion Gap 14 mmol/L (10-20); BUN (Urea Nitrogen) 16 mg/dL (8.4-25.7); Bilirubin, Total 0.5 mg/dL (0.2-1.2); CK (CPK) 68 U/L (30-200); Calc. Creatinine Clearance 0 mL/min (70-130); Carbon Dioxide 24 mmol/L (23-31); Chloride 106 mmol/L (98-107); Estimated GFR-MDRD 68; Globulin 2.3 g/dL (2.4-3.5); Glucose 128 mg/dL (83-110); Potassium 3.7 mmol/L (3.5-5.1); Protein, Total 5.8 g/dL (5.8-8.1); Sodium 140 mmol/L (136-145)
[2019-04-01] MEDS ORDERED: Furosemide 40 MG/4 ML VIAL ONE (08:37)
--- NOTE | 2019-04-01 08:49 | RAD ---
EXAM: XR Chest 1 View Portable PROVIDED CLINICAL HISTORY: Dyspnea COMPARISON: 03/17/2019 FINDINGS: Cardiac silhouette appears enlarged. Prominence of the pulmonary vasculature and pulmonary interstiti um. Blunting of the right costophrenic angle. No evidence for pneumothorax. Advanced bilateral glenohumeral arthropathy. IMPRESSION: Cardiomegaly and findings suggesting congestive failure with small right pleural effusion. Follow-up is recommended.
[2019-04-01 08:54] LABS: CKMB 3.1 ng/mL (0-6.6)
== END 2019-04-01 10:20 | disposition short-term general hospital (02) ==
LOC: MADERS 07:35
DX: I11.0 Hypertensive heart disease with heart failure (principal); I50.9 Heart failure, unspecified; Z86.73 Personal history of transient ischemic attack (TIA), and cerebral infarction without residual deficits; F41.9 Anxiety disorder, unspecified; Z79.899 Other long term (current) drug therapy; Z79.82 Long term (current) use of aspirin
CPT/HCPCS: 71045; 80053; 82550; 82553; 83605; 83880; 84484; 85025; 93005; 96374; J1940

== ENCOUNTER 2019-04-12 13:31 | Outpatient (CLI) | payer MEDICARE ==
[2019-04-12 13:53] LABS: Anion Gap 16 mmol/L (10-20); BUN (Urea Nitrogen) 15 mg/dL (8.4-25.7); Calc. Creatinine Clearance 0 mL/min (70-130); Calcium 8.3 mg/dL (7.8-10.44); Carbon Dioxide 21 mmol/L (23-31); Chloride 104 mmol/L (98-107); Estimated GFR-MDRD 68; Glucose 86 mg/dL (83-110); Potassium 4.5 mmol/L (3.5-5.1); Sodium 136 mmol/L (136-145)
[2019-04-12 14:23] LABS: #Basophils 0.1 thou/uL (0.0-0.2); #Eosinphils 0.2 thou/uL (0.0-0.7); #Lymphocytes 1.4 thou/uL (1.20-3.40); #Monocytes 0.6 thou/uL (0.11-0.59); %Eosinophils 4.9 % (0.0-10.0); %Lymphocytes 32.1 % (21.0-51.0); %Monocytes 13.4 % (0.0-10.0); %Neutrophils 47.6 % (42.0-75.0); Anisocytosis SLIGHT = 6-15 cells (100X) (0-5/hpf); Hemoglobin 10.8 g/dL (14.0-18.0); Hypochromia SLIGHT = 6-15 cells (100X) (0-5/hpf); Large Platelets SLIGHT; MDiff Complete? YES; Mean Corpuscular HGB CONC 32.3 g/dL (32.0-36.0); Mean Corpuscular Hemoglobin 30.4 pg (27.0-31.0); Mean Corpuscular Volume 94.3 fL (78.0-98.0); Mean Platelet Volume 8.6 fL (7.4-10.4); Platelet Count 277 thou/uL (130-400); Platelet Morphology Comment Appears Adequate; RBC Distribution Width 13.7 % (11.5-14.5); Red Blood Cell (RBC) Count 3.56 mill/uL (4.70-6.10); White Blood Cell (WBC) Count 4.2 thou/uL (4.8-10.8)
== END 2019-04-12 13:32 | disposition home or self-care (01) ==
LOC: MADLABBHPM 13:31
PROVIDERS: ATTEND Family Medicine
DX: I25.10 Atherosclerotic heart disease of native coronary artery without angina pectoris (principal); I25.5 Ischemic cardiomyopathy
CPT/HCPCS: 80048; 85025

== ENCOUNTER 2019-04-14 12:39 | Emergency (ER) | payer MEDICARE ==
[2019-04-14 13:20] LABS: #Basophils 0.1 thou/uL (0.0-0.2); #Eosinphils 0.1 thou/uL (0.0-0.7); #Lymphocytes 1.8 thou/uL (1.20-3.40); #Monocytes 0.5 thou/uL (0.11-0.59); %Basophils 1.9 % (0.0-1.0); %Eosinophils 2.8 % (0.0-10.0); %Lymphocytes 40.1 % (21.0-51.0); %Monocytes 11.4 % (0.0-10.0); %Neutrophils 43.8 % (42.0-75.0); Hemoglobin 11.3 g/dL (14.0-18.0); Mean Corpuscular Hemoglobin 29.9 pg (27.0-31.0); Mean Corpuscular Volume 93.2 fL (78.0-98.0); Mean Platelet Volume 7.9 fL (7.4-10.4); Platelet Count 308 thou/uL (130-400); RBC Distribution Width 14.1 % (11.5-14.5); Red Blood Cell (RBC) Count 3.77 mill/uL (4.70-6.10); White Blood Cell (WBC) Count 4.6 thou/uL (4.8-10.8)
[2019-04-14 13:38] LABS: ALT (SGPT) 29 U/L (8-55); AST (SGOT) 21 U/L (5-34); Albumin 3.7 g/dL (3.4-4.8); Alkaline Phosphatase 134 U/L (40-150); Anion Gap 15 mmol/L (10-20); BUN (Urea Nitrogen) 17 mg/dL (8.4-25.7); Bilirubin, Total 0.4 mg/dL (0.2-1.2); Calc. Creatinine Clearance 0 mL/min (70-130); Calcium 8.5 mg/dL (7.8-10.44); Carbon Dioxide 22 mmol/L (23-31); Chloride 103 mmol/L (98-107); Estimated GFR-MDRD 59; Globulin 2.7 g/dL (2.4-3.5); Glucose 96 mg/dL (83-110); Potassium 4.6 mmol/L (3.5-5.1); Protein, Total 6.4 g/dL (5.8-8.1); Sodium 135 mmol/L (136-145)
--- NOTE | 2019-04-14 13:53 | RAD ---
EXAM: Single view of the chest HISTORY: Leg swelling COMPARISON: 04/01/2019 FINDINGS: Single view of the chest shows an enlarged but stable cardiomediastinal silhouette. The pat ient is status post sternotomy. There appear to be small bilateral pleural effusions. No consolidation is seen. The bones are unremarkable. IMPRESSION: Cardiomegaly and small bilateral pleural effusions
[2019-04-14 13:56] LABS: CKMB 3.2 ng/mL (0-6.6)
== END 2019-04-14 17:46 | disposition short-term general hospital (02) ==
LOC: MADERS 12:39
DX: I11.0 Hypertensive heart disease with heart failure (principal); I50.9 Heart failure, unspecified; I25.2 Old myocardial infarction; F41.9 Anxiety disorder, unspecified; Z79.82 Long term (current) use of aspirin; Z86.73 Personal history of transient ischemic attack (TIA), and cerebral infarction without residual deficits; Z79.01 Long term (current) use of anticoagulants; Z79.899 Other long term (current) drug therapy
CPT/HCPCS: 71045; 80053; 82553; 83880; 84484; 85025; 93005